=== PATIENT | female | born 1930 | race Caucasian/White ===

== ENCOUNTER 2020-07-15 15:55 | Emergency (ER) | payer OTHER ==
[2020-07-15 16:13] VITALS: TEMP 98.3; BMI 15.4
[2020-07-15] MEDS ORDERED: SODIUM CHLORIDE 500 ML IV STA (16:39)
--- NOTE | 2020-07-15 16:39 | PDOC ---
History of Present Illness - General Chief Complaint: Irregular Heart Beat Stated Complaint: LETHARGY Time Seen by Provider: 07/15/20 16:22 - History of Present Illness Initial Comments: 89 yo female with PMH of dementia, stroke, afib, CHF BIBEMS from home after a syncopal episode. Pt was on the toilet when she began feeling faint where she was then transferred to chair and experienced a syncopal episode and woke up confused. In route, her HR was measured at 180 where she was given Diltiazem which brought down to 130. She is currently not alert/oriented and hx is obtained by daughter in law. Her son is the healthcare proxy and the patient is DNR, DNI and the family does not want cardioversion. 07/15/20 16:40 Past History - Medical History Allergies/Adverse Reactions: Allergies Allergy/AdvReac Type Severity Reaction Status Date / Time No Known Allergies Allergy Unverified 07/15/20 16:08 Home Medications: Ambulatory Orders Acetaminophen [Tylenol] 2 tab PO Q6H PRN 01/23/20 Enoxaparin [Lovenox -] 40 mg SQ DAILY disp.syrin 01/26/20 Multivitamins [Multivit ([facility] Formulary)] 1 tab PO DAILY tab 01/26/20 Silver Sulfadiazine 1% Top Cr [Silvadene -] 1 applic TP DAILY jar 01/26/20 Aspirin [ASA -] 81 mg PO DAILY tab.chew 01/31/20 Metoprolol Succinate [Toprol XL -] 12.5 mg PO DAILY tab.sr.24h 01/31/20 Anemia: Yes Asthma: No Cardiac Disorders: Yes COPD: No Dementia: Yes - Reproductive History Is Patient Now?: No - Psycho-Social/Smoking History Smoking History: Never smoked Have you smoked in the past 12 months: No Information on smoking cessation initiated: No - Substance Abuse Hx (Audit-C & DAST Scrn) How often the patient has a drink containing alcohol: Never Score: In Men: 4 or > Positive; In Women: 3 or > Positive: 0 Screen Result (Pos requires Nsg. Audit-10AR): Negative In the last yr the pt used illegal drug/Rx for NonMed reason: No Score: Yes response is considered Positive: 0 Screen Result (Positive result requires Nsg. DAST-10): Negative Review of Systems - Review of Systems Able to Perform ROS?: No *Physical Exam - Vital Signs Last Vital Signs Temp Pulse Resp BP Pulse Ox 98.3 F 136 H 36 H 108/94 07/15/20 16:10 07/15/20 16:10 07/15/20 16:10 07/15/20 16:10 - Physical Exam General Appearance: Yes: Appropriately Dressed. No: Apparent Distress Neck: negative: Tender, Rigid Respiratory/Chest: positive: Lungs Clear, Normal Breath Sounds. negative: Respiratory Distress Cardiovascular: positive: S1, S2, Tachycardia. negative: Regular Rhythm, Regular Rate Gastrointestinal/Abdominal: positive: Flat, Soft. negative: Tender Musculoskeletal: positive: Normal Inspection. negative: CVA Tenderness Extremity: positive: Normal Capillary Refill, Normal Inspection, Normal Range of Motion Integumentary: positive: Dry, Warm, Cold Neurologic: positive: Other (not alert and not oriented). negative: Fully Oriented, Alert ED Treatment Course - LABORATORY CBC & Chemistry Diagram: 07/15/20 16:45 07/15/20 18:13 Medical Decision Making - Medical Decision Making 89 yo female withPMH of dementia, stroke, a.fib (metoprolol 12.5, no antico agulation), CHF presents after syncope with AMS and A flutter. pH 7.30, pCO2, 43 WBC 11 Hb 17 Platelet 69 Creatinine 1.7 Called to bedside by RN as pt believed to be pulseless and apeneic. On exami nation, no heart sounds or spontaneous respirations appreciated. Asystole was confirmed in 2 leads. Time of 19:44. Gdxbcoop-pi-ehz at bedside made aware. Dr. Lopez told about situation surrounding and accepted to fill out certificate. Nurse contacted [facility] Discharge - Discharge Information Problems reviewed: Yes Clinical Impression/Diagnosis: Atrial flutter, Lethargy Atrial fibrillation Qualifiers: Atrial fibrillation type: permanent Qualified Code(s): I48.21 - Permanent atrial fibrillation Condition: Worsened Disposition: - Admission No - Follow up/Referral Referrals: Mariely Cuenca MD [Primary Care Provider] - - Patient Discharge Instructions - Post Discharge Activity
[2020-07-15] MEDS ORDERED: VANCOMYCIN 1 GM in D5W (PRE-DOCKED) 1,000 MG/250 ML IVPB ONE (17:59)
[2020-07-15] MEDS ORDERED: PIPERACILLIN/TAZOB 3.375 GM 3.375 GM in DEXTROSE 5%-WATER - 50 ML IVPB ONE (17:59)
[2020-07-15] MEDS ORDERED: AZITHROMYCIN IVPB 500 MG in DEXTROSE 5%-WATER - 250 ML IVPB ONE (18:00)
[2020-07-15] MEDS ORDERED: AZITHROMYCIN IVPB 500 MG/250 ML BAG IVPB ONE (18:50)
[2020-07-15 18:58] VITALS: BP 117/92; PULSE 135
[2020-07-15 18:59] LABS: VENOUS BASE EXCESS -5.1 mmol/L (-2-2); VENOUS O2 SATURATION 42.5 % (70-80); VENOUS PCO2 43.9 mmHg (38-52); VENOUS PH 7.303 (7.310-7.410)
--- NOTE | 2020-07-15 19:12 | PDOC ---
Documentation entered by Peyton Luevano SCRIBE, acting as scribe for Aric Dumont MD. Aric Dumont MD: This documentation has been prepared by the Bassem phillips Brenda, SCRIBE, under my direction and personally reviewed by me in its entirety. I confirm that the documentation accurately reflects all work, treatment, procedures, and medical decision making performed by me. Attending Attestation - Resident Resident Name: Owen Schaffer - ED Attending Attestation I have performed the following: I have examined & evaluated the patient, The case was reviewed & discussed with the resident, I agree w/resident's findings & plan, Exceptions are as noted - HPI HPI: 07/15/20 17:26 The patient is an 89 year old female with a significant PMH of Dementia, stroke, afib and CHF BIBA from home for evaluation of syncopal episode. History from patient's daughter in law as pt is too lethargic at this time. Per DIL, the patient's aide witnessed the pt to become pale and lethargic while on the toilet. Pt did not lose consiousness at that time, but while in her wheelchair a few hours later became unresponsive and pale once more. EMS was activated at this time. Per EMS, HR was 180s in the field and she was given diltiazem 8mg IV with reduction in HR to 130s. At this time, pt states "I feel well." When asked if she has any CP, SOB, or pain elsewhere, she denies Allergies: NKA - Physicial Exam PE: GENERAL: lethargic but arousable, in no acute distress HEAD: No signs of trauma EYES: PERRLA, EOMI, sclera anicteric, conjunctiva clear ENT: nares patent, oropharynx clear without exudates. Moist mucosa NECK: Normal ROM, supple, no lymphadenopathy, JVD, or masses LUNGS: Breath sounds equal, clear to auscultation bilaterally. +rales b/l at the bases HEART: Tachycardic to 137, regular normal S1 and S2, no murmurs, rubs or gallops ABDOMEN: Soft, nontender, normoactive bowel sounds. No guarding, no rebound. No masses EXTREMITIES: No edema. No clubbing or cyanosis. No cords, erythema, or tenderness NEUROLOGICAL: Normal speech, cranial nerves intact, unable to participate in remainder of exam. SKIN: Distal extremities cool to the touch - Medical Decision Making 07/15/20 19:00 89yo F MMP including AF, CHF presents to the ED with syncopal episode, found to be in Aflutter with rate in 180s in the field Was given diltiazem 8mg IV by EMS, HR now 130s in aflutter with 2:1 block Pt slightly cool to the touch, sleepy but arousable and denies any pain or SOB Concern for cardiogenic insufficiency vs sepsis at this time. BP 119/79 currently. With regards to rate control, plan to discuss with Dr. Williamson, the patients host/hostess head given concern for hypoperfusion. A call has been placed, awaiting call back. Lengthy discussion about GOC with daughter in law who is representing the pt's son and HCP. He can not be here due to pandemic as he is immunecompromised. Pt is DNR/DNI. They do not wish to cardiovert her and prefer only non invasive measures such as fluids and antibiotics. CXR reviewed, appears to show cardiomegaly, fluid overload and possible infiltrate. Pt covered with lucian/lexi/panfiloro Will discuss case with Dr. williamson, admit to tele Discharge - Discharge Information Problems reviewed: Yes Clinical Impression/Diagnosis: Atrial flutter, Lethargy, Syncope Atrial fibrillation Qualifiers: Atrial fibrillation type: permanent Qualified Code(s): I48.21 - Permanent atrial fibrillation Condition: Worsened Disposition: - Follow up/Referral Referrals: Mariely Cuenca MD [Primary Care Provider] - - Patient Discharge Instructions - Post Discharge Activity
[2020-07-15 19:17] LABS: INR 1.4 (0.83-1.09); PROTHROMBIN TIME (PATIENT) 16.6 SEC (9.7-13.0)
[2020-07-15 19:20] LABS: ACTIVATED PTT 27.8 SECONDS (25.2-36.5)
[2020-07-15 19:30] LABS: BILIRUBIN,TOTAL 1.4 mg/dL (0.2-1); BLOOD UREA NITROGEN 77.7 mg/dL (7-18); CALCIUM 8.7 mg/dL (8.5-10.1); CREATININE 1.7 mg/dL (0.55-1.3); POTASSIUM 4.3 mmol/L (3.5-5.1); TOT PROT 6.8 g/dl (6.4-8.2)
[2020-07-15 19:32] LABS: BASO % 0.1 % (0-2.0); LYMPH % 4.2 % (8-40); MCH 33.5 pg (25.7-33.7); MCHC 33.3 g/dl (32.0-36.0); MEAN CELL VOLUME 100.6 fl (80-96); MEAN PLT VOLUME 10.4 fl (7.5-11.1); MONO % 12.9 % (3.8-10.2); NEUT % 82.8 % (42.8-82.8); PLATELET COUNT 69 K/MM3 (134-434); RBC 5.07 M/mm3 (3.60-5.2); RDW 15.5 % (11.6-15.6); WHITE BLOOD COUNT 11.1 K/mm3 (4.0-10.0)
--- NOTE | 2020-07-16 10:38 | EKG ---
Test Reason : Blood Pressure : / mmHG Vent. Rate : 137 BPM Atrial Rate : 274 BPM P-R Int : 000 ms QRS Dur : 138 ms QT Int : 348 ms P-R-T Axes : 263 -43 124 degrees QTc Int : 525 ms ATRIAL FLUTTER WITH 2:1 A-V CONDUCTION LEFT AXIS DEVIATION LEFT BUNDLE BRANCH BLOCK ABNORMAL ECG WHEN COMPARED WITH ECG OF 27-JAN-2020 10:32, ATRIAL FLUTTER HAS REPLACED SINUS RHYTHM LEFT BUNDLE BRANCH BLOCK IS NOW PRESENT CRITERIA FOR SEPTAL INFARCT ARE NO LONGER PRESENT Confirmed by Casper Melton MD ([id number]) on 07/16/2020 10:37:05 AM Referred By: Confirmed By:Casper Melton MD
== END 2020-07-15 22:26 | disposition expired ==
LOC: JER 15:55
PROC: 3E03329 Introduction of Other Anti-infective into Peripheral Vein, Percutaneous Approach (ICD-10-PCS; principal; 2020-07-15)
PROC: 3E033GC Introduction of Other Therapeutic Substance into Peripheral Vein, Percutaneous Approach (ICD-10-PCS; 2020-07-15)
PROC: 3E0337Z Introduction of Electrolytic and Water Balance Substance into Peripheral Vein, Percutaneous Approach (ICD-10-PCS; 2020-07-15)
DX: I48.21 Permanent atrial fibrillation (principal); R53.83 Other fatigue; I46.9 Cardiac arrest, cause unspecified
CPT/HCPCS: 36415; 71045-TC-FY; 80053; 82550; 82553; 82803; 83605; 84443; 84484; 85025; 85610; 85730; 86850; 86900; 86901; 87040; 93005; 93010; 99285-25; U0003